=== PATIENT | male | born 1960 | race Caucasian/White ===

== ENCOUNTER 2024-03-11 16:58 | Emergency (ER) | payer OTHER ==
[~2024-03-11] VITALS: Ht 172.7 cm; Wt 63.5 kg
[2024-03-11 17:38] LABS: BASOPHILS # (AUTO) 0.06 K/uL (0.00-0.20); BASOPHILS % (AUTO) 0.8 % (0.0-5.0); EOSINOPHILS # (AUTO) 0.15 K/uL (0.00-0.70); EOSINOPHILS % (AUTO) 1.9 % (0.0-8.0); HEMATOCRIT 38.5 % (42-54); IMMATURE GRANULOCYTE ABSOLUTE 0.03 K/uL (0-1); LYMPHOCYTES % (AUTO) 25.7 % (21.0-51.0); MEAN CORPUSCULAR HEMOGLOBIN 29.7 pg (27.0-33.0); MEAN CORPUSCULAR HGB CONC 33.8 g/dL (32.0-36.0); MEAN CORPUSCULAR VOLUME 87.9 fL (79-99); MONOCYTES # (AUTO) 0.8 K/uL (0.1-1.0); MONOCYTES % (AUTO) 9.6 % (3.0-13.0); NEUTROPHILS # (AUTO) 4.8 K/uL (1.8-7.7); NEUTROPHILS % (AUTO) 61.6 % (40.0-77.0); PLATELET COUNT (AUTO) 260 K/uL (130-400); RED BLOOD CELL COUNT(AUTO) 4.38 MIL/uL (4.50-6.20); RED CELL DISTRIBUTION WIDTH 14.1 % (11.0-15.5); WHITE BLOOD COUNT (AUTO) 7.8 K/uL (4.8-10.8)
[2024-03-11 17:52] LABS: ALBUMIN 4.1 g/dL (3.5-5.0); BILIRUBIN,TOTAL 0.6 mg/dL (0.2-1.0); TOTAL PROTEIN, SERUM 7.3 g/dL (6.0-8.3)
[2024-03-11] MEDS: CEFAZOLIN SODIUM 2 GM VIAL IVPB SCH (17:56)
[2024-03-11] MEDS: 0.9%NACL 1000ML 1,000 ML IV ONE (17:56)
[2024-03-11] MEDS: LIDOCAINE HCL 1% 20 ML VIAL INJ SCH (17:56)
[2024-03-11] MEDS: MORPHINE 4 MG SYG IVP ONE (17:57)
[2024-03-11] MEDS: ONDANSETRON 4MG INJ IVP ONE (17:57)
[2024-03-11] MEDS: DIPH,PERTUSS(ACELL),TET VAC/PF 0.5 ML VIAL IM ONE (17:57)
[2024-03-11 18:54] VITALS: BP 136/90; PULSE 60; RESP 18; O2SAT 100
[2024-03-11] MEDS ORDERED: AMOX1TAB16 PO (19:00)
[2024-03-11] MEDS ORDERED: IBUP-2077 PO (19:00)
[2024-03-11] MEDS ORDERED: HYDR-4060 PO (19:00)
== END 2024-03-11 19:36 | disposition home or self-care (01) ==
LOC: EDH 16:58
DX: S62.635A Displaced fracture of distal phalanx of left ring finger, initial encounter for closed fracture (principal); Z79.899 Other long term (current) drug therapy; X58.XXXA Exposure to other specified factors, initial encounter; Y93.89 Activity, other specified; Y92.89 Other specified places as the place of occurrence of the external cause; Y99.8 Other external cause status
CPT/HCPCS: 99285; 96365; 82550; 80053; 85025; 36415; 90715; 73130; 90471; 93005; J7030; J0690; J2270; J2405